=== PATIENT | male | born 1945 | race Caucasian/White ===

== ENCOUNTER → 2024-09-18 11:47 | Outpatient (CLI) | payer MEDICARE, MEDICAID, SELFPAY ==
[2024-09-18 19:42] LABS: Alanine Aminotransferase 28 IU/L (<50); Albumin 3.7 g/dL (3.5-5.0); Albumin Globulin Ratio 1.3 (1.0-2.8); Alkaline Phosphatase 126 U/L (38-126); Aspartate Aminotransferase 34 IU/L (17-59); BUN Creatinine Ratio 18.2 (6-22); Bilirubin Total 0.5 mg/dL (0.2-1.3); Blood Urea Nitrogen 22 mg/dL (9-20); Carbon Dioxide 27 mmol/L (22-32); Chloride 108 mmol/L (98-107); Cholesterol 114 mg/dL (140-199); Estimated Glomerular Filt Rate > 60 mL/min (>60); Globulin 2.9 g/dL (1.7-4.1); Glucose 105 mg/dL (80-110); HDL Cholesterol 37 mg/dL (40-60); HEMOLYSIS < 15 (0-50); LDL Cholesterol Calculated 59 mg/dL (<100); Magnesium 1.7 mg/dL (1.6-2.3); Sodium 138 mmol/L (137-145); Total Protein 6.6 g/dL (6.3-8.2); Triglycerides 88 mg/dL (35-150)
[2024-09-18 19:46] LABS: Add Manual Diff / Slide Review NO; Basophils Absolute Auto 0 /uL (0-100); Basophils Percent Auto 0.5 % (0-2); Eosinophils Absolute Auto 100 /uL (0-450); Eosinophils Percent Auto 1.6 % (2-4); Hematocrit 28.7 % (41-53); Hemoglobin 9.3 g/dL (13.5-17.5); Lymphocytes Absolute Auto 1200 /uL (1100-4500); Lymphocytes Percent Auto 21.9 % (25-40); Mean Corpuscular HGB Conc 32.4 % (30-36); Mean Corpuscular Hemoglobin 25.6 PG (26-34); Mean Corpuscular Volume 79.1 fL (80-100); Monocytes Absolute Auto 700 /uL (0-900); Monocytes Percent Auto 12.2 % (3-14); Neutrophils Absolute Auto 3500 /uL (1500-7000); Neutrophils Percent Auto 63.8 % (50-75); Platelet Count 286 X10^3/uL (150-400); Red Blood Cell Count 3.62 X10^6/uL (4.5-5.9); Red Cell Distribution Width 16.7 % (11.6-14.8); White Blood Cell Count 5.5 X10^3/uL (4.5-11.0)
[2024-09-18 20:14] LABS: Thyroid Stimulating Hormone 1.92 uIU/mL (0.47-4.68)
== END ==
PROVIDERS: PCP Family Medicine; Visit Provider Family Medicine
DX: R26.89 Other abnormalities of gait and mobility (principal); N40.1 Benign prostatic hyperplasia with lower urinary tract symptoms; I25.10 Atherosclerotic heart disease of native coronary artery without angina pectoris; K21.9 Gastro-esophageal reflux disease without esophagitis; Z87.11 Personal history of peptic ulcer disease; I10 Essential (primary) hypertension; E78.2 Mixed hyperlipidemia; Z95.5 Presence of coronary angioplasty implant and graft; I69.359 Hemiplegia and hemiparesis following cerebral infarction affecting unspecified side
CPT/HCPCS: 80053; 80061; 83735; 84443; 85025

== ENCOUNTER → 2024-10-11 14:41 | Outpatient (CLI) | payer OTHER, SELFPAY ==
[2024-10-11 22:08] LABS: Hematocrit 28.4 % (41-53); Hemoglobin 9.2 g/dL (13.5-17.5)
[2024-10-11 22:45] LABS: Ferritin 5 ng/mL (18-464)
[2024-10-12 00:01] LABS: Folate > 20.0 ng/mL (2.76-20.0); Vitamin B12 405 pg/mL (239-931)
== END ==
PROVIDERS: PCP Family Medicine; Visit Provider Family Medicine
DX: I25.10 Atherosclerotic heart disease of native coronary artery without angina pectoris (principal); I10 Essential (primary) hypertension; E78.2 Mixed hyperlipidemia; Z95.5 Presence of coronary angioplasty implant and graft; I20.0 Unstable angina; Z87.11 Personal history of peptic ulcer disease
CPT/HCPCS: 82607; 82728; 82746; 85014; 85018

== ENCOUNTER → 2024-12-19 13:00 | Outpatient (CLI) | payer OTHER, SELFPAY ==
[2024-12-19 19:18] LABS: Add Manual Diff / Slide Review NO; Basophils Absolute Auto 0 /uL (0-100); Basophils Percent Auto 0.7 % (0-2); Eosinophils Absolute Auto 300 /uL (0-450); Eosinophils Percent Auto 5.7 % (2-4); Hematocrit 32.4 % (41-53); Hemoglobin 10.6 g/dL (13.5-17.5); Lymphocytes Absolute Auto 1000 /uL (1100-4500); Lymphocytes Percent Auto 18.8 % (25-40); Mean Corpuscular HGB Conc 32.9 % (30-36); Mean Corpuscular Hemoglobin 28.5 PG (26-34); Mean Corpuscular Volume 86.8 fL (80-100); Monocytes Absolute Auto 600 /uL (0-900); Monocytes Percent Auto 10.7 % (3-14); Neutrophils Absolute Auto 3500 /uL (1500-7000); Neutrophils Percent Auto 64.1 % (50-75); Platelet Count 275 X10^3/uL (150-400); Red Blood Cell Count 3.73 X10^6/uL (4.5-5.9); Red Cell Distribution Width 21.3 % (11.6-14.8); White Blood Cell Count 5.5 X10^3/uL (4.5-11.0)
[2024-12-19 19:19] LABS: HEMOLYSIS 15 (0-50); Iron 42 ug/dL (49-181)
[2024-12-19 19:26] LABS: Alanine Aminotransferase 19 IU/L (<50); Albumin 3.7 g/dL (3.5-5.0); Albumin Globulin Ratio 1.2 (1.0-2.8); Alkaline Phosphatase 93 U/L (38-126); Aspartate Aminotransferase 28 IU/L (17-59); BUN Creatinine Ratio 24.2 (6-22); Bilirubin Total 0.5 mg/dL (0.2-1.3); Blood Urea Nitrogen 24 mg/dL (9-20); Calcium 9.2 mg/dL (8.4-10.2); Carbon Dioxide 25 mmol/L (22-32); Chloride 103 mmol/L (98-107); Estimated Glomerular Filt Rate > 60 mL/min (>60); Globulin 3.1 g/dL (1.7-4.1); Glucose 119 mg/dL (70-99); HEMOLYSIS < 15 (0-50); Sodium 138 mmol/L (137-145); Total Protein 6.8 g/dL (6.3-8.2)
[2024-12-19 19:32] LABS: Percent Iron Saturation 12 % (20-50); Total Iron Binding Capacity 346 ug/dL (261-462); Transferrin 267 mg/dL (206-381)
[2024-12-19 19:58] LABS: Ferritin 43 ng/mL (18-464)
[2024-12-19 20:00] LABS: Anisocytosis 2+
== END ==
PROVIDERS: PCP Family Medicine; Visit Provider Family Medicine
DX: K21.9 Gastro-esophageal reflux disease without esophagitis (principal); Z87.11 Personal history of peptic ulcer disease; D50.9 Iron deficiency anemia, unspecified; Z95.5 Presence of coronary angioplasty implant and graft; I10 Essential (primary) hypertension
CPT/HCPCS: 80053; 82728; 83540; 83550; 85025

== ENCOUNTER → 2025-01-01 10:20 | Outpatient (CLI) | payer MEDICARE, MEDICAID, SELFPAY ==
--- NOTE | 2025-01-01 10:21 | DI.US.S_ITS ---
PROCEDURE: US PERIPH VENOUS LOW EXTREM RT INDICATIONS: swelling RLE medially, history of phlebitis TECHNIQUE: Real-time imaging, as well as color and pulse Doppler interrogation, were performed of the lower extremity deep veins from the inguinal ligament to the popliteal fossa, with documentation of the visualized calf veins. COMPARISON: None. FINDINGS: The common femoral, femoral, popliteal, and the visualized calf veins are normally compressible, and free of intraluminal thrombus. Color and pulse Doppler demonstrate normal phasic intraluminal flow. There is normal augmentation response to distal compression maneuver. IMPRESSION: No evidence of DVT in visualized right lower extremity veins. Dictated by: Víctor Dotson M.D. on 01/01/2025 at 11:08 Approved by: Víctor Dotson M.D. on 01/01/2025 at 11:09
== END ==
LOC: US 10:20
PROVIDERS: PCP Family Medicine; Referring Provider Family Medicine; Visit Provider Family Medicine
DX: I80.9 Phlebitis and thrombophlebitis of unspecified site (principal); M79.89 Other specified soft tissue disorders
CPT/HCPCS: 93971

== ENCOUNTER → 2025-05-30 16:35 | Outpatient (CLI) | payer MEDICARE, MEDICAID, SELFPAY ==
--- NOTE | 2025-05-30 16:37 | DI.MRI.S_ITS ---
PROCEDURE: MR LUMBAR SPINE WO CON INDICATIONS: low back pain radiating to right lower limb TECHNIQUE: Noncontrast sagittal T1 spin echo and T2 fast echo, sagittal STIR, and T2 fast spin echo through the lumbar spine. In cases with scoliosis, additional coronal T2 fast spin echo may be performed. COMPARISON: [facility] ([facility]), CR, XR LUMBAR SPINE 2- 3V, 02/21/2025, 13:22. FINDINGS: Image quality: Excellent. Alignment and Curvature: Grade 2 anterolisthesis of L5 on S1. Bone Marrow: Degenerative endplate edema (Modic type 1 change), is present at L5-S1. Bone marrow signal is otherwise unremarkable. No acute vertebral body compression fractures. Bilateral pars interarticularis defects at L5. Spinal Cord: Conus medullaris terminates at the L1 level. Visualized cord demonstrates normal signal and size. Paraspinous Soft Tissues: No paravertebral masses. T12-L1: Normal appearance. L1-L2: Trace disc bulge and mild facet and ligamentum flavum hypertrophy. No spinal canal or neural foraminal stenosis. L2-L3: Small disc bulge and mild facet and ligamentum flavum hypertrophy. No spinal canal or neural foraminal stenosis. L3-L4: Small disc bulge and mild facet and ligamentum flavum hypertrophy. No spinal canal or neural foraminal stenosis. L4-L5: Small disc bulge and moderate facet and ligamentum flavum hypertrophy. No spinal canal or neural foraminal stenosis. L5-S1: Uncovering of the disc secondary to anterolisthesis. Moderate to severe bilateral facet hypertrophy. Severe bilateral neural foraminal stenosis. No spinal canal stenosis. IMPRESSION: 1. 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 2. Degenerative changes of the lumbar spine most notable for severe facet arthropathy at L5-S1 and anterolisthesis, causing severe bilateral neural foraminal stenosis. No significant spinal canal stenosis at any level. Dictated by: Danna Spaulding M.D. on 06/01/2025 at 19:37 Approved by: Danna Spaulding M.D. on 06/01/2025 at 19:46
== END ==
PROVIDERS: PCP Family Medicine; Referring Provider Physical Medicine & Rehabilitation; Visit Provider Physical Medicine & Rehabilitation
DX: M47.27 Other spondylosis with radiculopathy, lumbosacral region (principal); M47.26 Other spondylosis with radiculopathy, lumbar region; M43.16 Spondylolisthesis, lumbar region; M43.17 Spondylolisthesis, lumbosacral region; M48.07 Spinal stenosis, lumbosacral region
CPT/HCPCS: 72148

== ENCOUNTER → 2025-06-03 13:45 | Outpatient (CLI) | payer MEDICARE, MEDICAID, SELFPAY ==
[2025-06-03 18:51] LABS: Hematocrit 36.7 % (41-53); Hemoglobin 12.8 g/dL (13.5-17.5)
[2025-06-03 19:23] LABS: HEMOLYSIS < 15 (0-50); Iron 100 ug/dL (49-181)
[2025-06-03 19:24] LABS: Blood Urea Nitrogen 25 mg/dL (9-20); Calcium 9.4 mg/dL (8.4-10.2); Carbon Dioxide 30 mmol/L (22-32); Chloride 105 mmol/L (98-107); Estimated Glomerular Filt Rate > 60 mL/min (>60); Glucose 73 mg/dL (70-99); HEMOLYSIS < 15 (0-50); Potassium 4.2 mmol/L (3.4-5.1); Sodium 139 mmol/L (137-145)
[2025-06-03 19:41] LABS: Percent Iron Saturation 31 % (20-50); Total Iron Binding Capacity 322 ug/dL (261-462); Transferrin 263 mg/dL (206-381)
[2025-06-03 19:58] LABS: Ferritin 53 ng/mL (18-464)
== END ==
PROVIDERS: PCP Family Medicine; Visit Provider Family Medicine
DX: I10 Essential (primary) hypertension (principal); D50.0 Iron deficiency anemia secondary to blood loss (chronic); Z87.11 Personal history of peptic ulcer disease; M16.11 Unilateral primary osteoarthritis, right hip; R63.4 Abnormal weight loss; Z95.5 Presence of coronary angioplasty implant and graft
CPT/HCPCS: 80048; 82728; 83540; 83550; 85014; 85018